=== PATIENT | male | born 1965 | race Caucasian/White ===

== ENCOUNTER 2018-05-29 08:18 | Inpatient (IN) ==
[2018-05-29 08:38] LABS: URINE SOURCE CLEAN CATCH
[2018-05-29 08:46] LABS: BILIRUBIN URINE NEGATIVE (NEGATIVE); BLOOD URINE NEGATIVE (NEGATIVE); COLOR ORANGE; GLUCOSE URINE NEGATIVE (NEGATIVE); KETONE URINE NEGATIVE (NEGATIVE); LEUKOCYTES URINE NEGATIVE (NEGATIVE); NITRITE URINE NEGATIVE (NEGATIVE); PROTEIN URINE TRACE mg/dL (NEGATIVE); SP GRAVITY URINE 1.017; TURBIDITY URINE HAZY (CLEAR); UROBILINOGEN URINE 2 mg/dL (NORMAL)
[2018-05-29 08:47] LABS: UR EPITHELIAL CELLS <10 /HPF (<10); URINE BACTERIA NEGATIVE /HPF; URINE RBC <10 /HPF (<10); URINE WBC <10 /HPF (<10)
[2018-05-29] MEDS ORDERED: ZOFRAN IV ONE (08:52)
[2018-05-29] MEDS ORDERED: DILAUDID IV ONE (08:52)
--- NOTE | 2018-05-29 09:02 | PROVIDER DOCUMENTATION ---
HPI-Abdominal Pain/GI Problem - General Chief Complaint: Abdominal Pain Stated Complaint: LOWER ABD PAIN Time Seen by Provider: 05/29/18 08:40 Source: patient, old records Allergies/Adverse Reactions: Patient Allergies Allergy/AdvReac Type Severity Reaction Status Date / Time No Known Allergies Allergy Verified 11/02/12 10:44 Home Medications: Home Medication List Medication Instructions Recorded Confirmed Last Taken Type Atenolol [Tenormin] 50 mg PO DAILY 11/02/12 11/02/12 11/01/12 05:00 History 50 MG Losartan [Cozaar] 50 mg PO DAILY 11/02/12 11/02/12 11/01/12 05:00 History 50 MG SIMVAstatin [Zocor] 40 mg PO QHS 11/02/12 11/02/12 10/26/12 18:00 History 40 MG - History of Present Illness-ABD Nature of Presenting Problems: pt reports 4 non-bloody diarrheal stools yesterday, then last noc abd pain initially LLQ, now more generalized. no doc'd fever, no emesis ("I can't vomit"...hx of fundoplication). Pt also reporting "dark" (? bloody) urine this a.m, denies PMHx of renal stones. does report 1 remote episode of diverticulitis. 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 Pain Radiation: reports: no radiation Review of Systems - Adult - REVIEW OF SYSTEMS - ADULT Constitutional: reports: no symptoms reported Eyes: reports: no symptoms reported Ears, Nose, Mouth & Throat: reports: no symptoms reported Cardiovascular: reports: no symptoms reported Respiratory: reports: no symptoms reported. denies: shortness of breath Gastrointestinal: reports: see HPI Genitourinary: reports: see HPI Musculoskeletal: reports: no symptoms reported Integumentary: reports: no symptoms reported Neurological: reports: no symptoms reported Psychiatric: reports: no symptoms reported Endocrine: reports: no symptoms reported Hematologic/Lymphatic: reports: no symptoms reported Allergic/Immunologic: reports: no symptoms reported All Other Systems: Reviewed and Negative Past History - Adult - PAST MEDICAL HISTORY-ADULT Review of Records: reports: Old Records Reviewed Physical Exam-General - PHYSICAL EXAM-ADULT Initial Vital Signs Reviewed: Yes - CONSTITUTIONAL General Appearance: appears well, alert, mild distress - EYES Eyes: PERRL/EOMI, pink conjunctivae. negative: sclera injected - HEAD, EARS, NOSE, MOUTH & THROAT HENMT: normocephalic/atraumatic, moist mucous membranes, normal ENT inspection - NECK Neck: supple. negative: Brudzinski's sign - RESPIRATORY Respiratory: lungs clear, normal breath sounds - CARDIOVASCULAR Cardiovascular: normal peripheral pulses, regular rate, rhythm - GASTROINTESTINAL (ABDOMEN) Abdominal Exam: normal bowel sounds, soft, tenderness (LLQ, suprapubic). negative: abdominal bruit, distended, guarding, rigid, rebound - LYMPHATIC Lymphatic: no adenopathy - MUSCULOSKELETAL Back Exam: normal inspection, no CVA tenderness Extremity: normal range of motion, normal gait Peripheral Pulses: radial (R): 2+, radial (L): 2+ - SKIN Integumentary: normal color, normal turgor, warm/dry. negative: ecchymosis, embolic lesions, purpura, rash - NEUROLOGIC Neurologic: citrus picker II-XII nml as tested, grossly normal - PSYCHIATRIC Psych/Mental Status: normal mood/affect, normal thought content Progress - PLAN OF CARE/RESULTS Progress/Plan/Lab Results: Vital Signs - 8 hr 05/29/18 08:27 Temperature 98.7 F Pulse Rate 84 Respiratory Rate 18 Blood Pressure 130/86 O2 Sat by Pulse Oximetry 100 Laboratory Results - last 24 hr 05/29/18 08:31 Urine Source CLEAN CATCH Urine Color ORANGE Urine Turbidity HAZY Urine pH 6.0 Ur Specific Paragon 1.017 Urine Protein TRACE A Ur Glucose (Stick) NEGATIVE Ur Ketones (Stick) NEGATIVE Urine Blood NEGATIVE Urine Nitrite NEGATIVE Urine Bilirubin NEGATIVE Urobilinogen Dipstick 2 A Urine Leukocytes NEGATIVE Urine WBC (Auto) <10 Urine RBC (Auto) <10 U Epithel Cells (Auto) <10 Urine Bacteria (Auto) NEGATIVE Orders Category Date Time Status ED: Urine Bedside ORDERED Care 05/29/18 08:47 Ordered NPO Diet 05/29/18 08:[address] ABDOMEN/PELVIS W/O CONTRAST [CT] Stat Exams 05/29/18 08:53 Ordered AMYLASE [CHEM] Stat Lab 05/29/18 08:48 Uncollected CBC WITH DIFF [HEME] Stat Lab 05/29/18 08:47 Uncollected COMPREHENSIVE METABOLIC PANEL [CHEM] Stat Lab 05/29/18 08:47 Uncollected LIPASE [CHEM] Stat Lab 05/29/18 08:47 Uncollected UA [URINALYSIS W/POSS RFLX CULT] [URINALYSIS] Stat Lab 05/29/18 08:31 Results URINE DRUG SCREEN Stat Lab 05/29/18 08:48 Uncollected Hydromorphone [Dilaudid] Med 05/29/18 08:52 Once 1 mg IV NOW ONE Ondansetron [Zofran] Med 05/29/18 08:52 Once 4 mg IV NOW ONE Abd Pain/OB <20 weeks Stat Oth 05/29/18 08:41 Ordered Result Diagrams: 05/29/18 09:00 05/29/18 09:00 - REASSESSMENT Reassessment #1 Time Reassessed: 12:10 Status: unchanged (CT shows diverticulitis w/ extra-luminal gas, abscess: pt agrees to admit) - CONSULTS/PCP/HOSPITALIST Notification #1 *Consult/PCP/Hospitalist*: [place] Time Discussed: 12:05 Consult Disposition: Admit Departure - Departure Date of Disposition Decision: 05/29/18 Time of Disposition Decision: 12:10 DIAGNOSIS: Acute diverticulitis Disposition: ADMITTED INPATIENT 09 Certified Medical Emergency: Emergent Condition: Serious Referrals and Follow-Ups: None,PCP [NON-STAFF PROVIDER] - - Critical Care Note This patient required my direct & personal management of CC.: No Attestation - Physician/ ZAK Attestation The physician spent face to face time with patient:: Yes Advanced Practice Provider documentation review:: Supervising physician onsite and consulted in the evaluation and care of this patient. The physician did have a face to face encounter with the patient.
[2018-05-29 09:18] LABS: BASO# 0.01 X1000 (0.0-0.2); BASO% 0.1 % (0.0-0.8); EOS# 0.01 X1000 (0.0-0.7); EOS% 0.1 % (0.0-10.0); HEMATOCRIT 35.9 % (42.0-52.0); IMM GRAN# 0.02 X1000 (0.0-0.04); IMM GRAN% 0.2 % (0.0-0.5); LYMPH# 0.56 X1000 (1.2-3.4); LYMPH% 4.9 % (20.5-51.1); MCH 32.7 PG (27-31); MCHC 33.4 g/dL (33-37); MCV 97.8 FL (81-99); MONO# 0.41 X1000 (0.11-0.59); MONO% 3.6 % (1.7-9.3); MPV 9.4 FL (7.4-10.4); NEUT# 10.34 X1000 (1.4-6.5); NEUT% 91.1 % (42.2-75.2); PLT 128 X1000 (130-400); RBC 3.67 XMIL (4.7-6.1); RDW 14.4 % (11.5-14.5); WBC 11.35 X1000 (4.8-10.8)
[2018-05-29 09:21] LABS: UR AMPHETAMINES QUAL NONE DETECTED (NONE DETECT); UR BARBITUATES QUAL NONE DETECTED (NONE DETECT); UR BENZODIAZEPIN QUAL NONE DETECTED (NONE DETECT); UR CANNABINOIDS QUAL NONE DETECTED (NONE DETECT); UR COCAINE QUAL NONE DETECTED (NONE DETECT); UR METHADONE QUAL NONE DETECTED (NONE DETECT); UR OPIATES QUAL NONE DETECTED (NONE DETECT); UR OXYCODONE QUAL NONE DETECTED (NONE DETECT); UR PCP QUAL NONE DETECTED (NONE DETECT)
[2018-05-29 09:41] LABS: AGAP 15; ALB/GLOB RATIO 1.3; ALKALINE PHOSPHATASE 37 U/L (32-122); AMYLASE 40 U/L (20-200); BUN 8 mg/dL (8-22); CALCIUM 8.3 mg/dL (8.8-10.2); CHLORIDE 97 mmol/L (98-107); COSMO 275; ESTIMATED GFR > 60; GLUCOSE 119 mg/dL (70-104); GOT 117 U/L (10-34); GPT 45 U/L (10-44); LIPASE 24 U/L (13-60); POTASSIUM 3.3 mmol/L (3.5-5.1); SODIUM 138 mmol/L (136-145); TCO2 26 mmol/L (25-35); TOTAL PROTEIN 7.1 g/dL (6.3-8.3)
[2018-05-29 09:53] LABS: BANDS 3 % (0-1); LYMPHS 4 % (21-51); MONO 3 % (1-9); SEGS 90 % (42-75)
--- NOTE | 2018-05-29 10:02 | Diag Imaging Result Doc PS360 ---
EXAM: CT ABDOMEN/PELVIS W/O CONTRAST 05/29/2018 HISTORY: LLQ abd pain; ?? hematuria; PMHx diverticulitis TECHNIQUE: This exam was performed using automated exposure control, adjustment of mA or kV according to patient size, and/or use of iterative reconstruction technique. COMMENT: The current examination is compared with the previous study of 11/02/2012. There is no evidence of hydronephrosis or stones. The appendix is not distended. There is some fluid in the right paracolic gutter, and there is fluid in the ascending colon. There is diverticulosis and apparent diverticulitis in the sigmoid colon. There is some extraluminal gas seen anterior to the sigmoid. There may be a small abscess around image 113 anterolaterally on the left. This was not the case at the time the previous study. There is fluid and/or edema anterior to the urinary bladder. This is presumably related to the inflammatory change in the properitoneal fat. There are spondylotic changes in the lumbar spine. The small bowel is not distended. IMPRESSION: Sigmoid diverticulitis. Extraluminal gas and apparent early abscess formation. Properitoneal and mesenteric fat inflammation. Electronically signed by Reno Guerrero 05/29/2018 9:59 AM
[2018-05-29] MEDS ORDERED: LEVAQUIN 500 MG/D5W 500 MG/100 ML IVPB IV ONE (11:45)
[2018-05-29] MEDS ORDERED: FLAGYL 500 MG/NS 500 MG/100 ML IVPB IV ONE (11:45)
[2018-05-29] MEDS ORDERED: NS 1,000 ML IV SCH (13:17)
[2018-05-29] MEDS ORDERED: TYLENOL PO PRN (13:17)
[2018-05-29] MEDS: FLAGYL 500 MG/NS 500 MG/100 ML IVPB IV SCH ×2 (13:51→20:29)
[2018-05-29] MEDS: MORPHINE IV PRN ×3 (13:51→21:55)
[2018-05-29] MEDS ORDERED: PNEUMOVAX 23 IM ONE (15:15)
[2018-05-29] MEDS: LEVAQUIN 750 MG/D5W 750 MG/150 ML IVPB IV SCH (16:06)
--- NOTE | 2018-05-29 16:50 | GENERAL SURGERY CONSULTATION ---
DATE: 05/29/2018 REQUESTING PHYSICIAN: Hospitalist Service. REASON FOR CONSULTATION: Consult is concerning diverticulitis. HISTORY OF PRESENT ILLNESS: A 52-year-old male with a history of less than 24-hours of pain that started in the left lower quadrant, now more generalized. He has also had some issues with change in his urine. He describes it as being somewhat bloody. He came to emergency department for this and was found to have diverticulitis. He has had a previous episode remotely, and he has had a recent colonoscopy in 2012 which was found to have bleeding polyps. This was done by Dr. Mondragon. He still reports some pain in the left lower quadrant that has not improved much since he was admitted. PAST MEDICAL HISTORY: History of Noonan's esophagus, hyperlipidemia, hypertension. PAST SURGICAL HISTORY: Includes Davian fundoplication, unspecified abdominal mass removal and nasal surgery. SOCIAL HISTORY: Nonsmoker. Occasional alcohol. FAMILY HISTORY: Reviewed with patient, noncontributory. REVIEW OF SYSTEMS: A full 10 point review of systems obtained and negative, except as specified in HPI. MEDICATIONS: Current MAR reviewed. He is on Levaquin and Flagyl. ALLERGIES: None. PHYSICAL EXAMINATION: Vital Signs: Patient is currently afebrile. His vital signs are stable. General exam: No acute distress. Alert, interactive male looks stated age. HEENT: Normocephalic, atraumatic. Pupils equal, round, reactive to light. Mucous membranes moist. Oropharynx benign. Neck: Supple. Trachea midline. Cardiovascular: Regular rate and rhythm. Lungs: Grossly clear. Abdomen: Soft. Tender to palpation suprapubically in left lower quadrant and some in the right lower quadrant. Some mild guarding, but no generalized peritoneal signs. Extremities: Moves all extremities. Neurologic: Grossly intact. Skin: No signs of jaundice. Vascular: All extremities perfused. LABORATORY: White blood cell count 11, hematocrit 35, platelet count 128. There is a left shift to 91%. Remainder of labs reviewed. X-RAYS: CT scan independently reviewed and radiology report reviewed. He does have diverticulitis. There may be a development of an abscess. ASSESSMENT AND PLAN: A 52 year old with recurrent diverticulitis. 1. Diverticulitis. At this time recommend keeping him on nothing by mouth and giving him intravenous antibiotics. May need to consider repeat CT scan in the next 48 hours to see if an abscess has formed. This area is near his bladder on CT scan; it may be contributing to somewhat of his issues with his urination. At this point, I would like to try to treat him nonoperatively and plan on colonoscopy in 6 weeks, which I can do for the patient in an outpatient setting. He may also need to consider elective surgery for this resection given the fact that this is his second episode. Otherwise, continue current treatment. If any clinical signs change that he is deteriorating, we will consider surgical resection of this area with ostomy. cc: Chapincito Dewey MD
[2018-05-29] MEDS: ZOCOR PO SCH (20:29)
[2018-05-29] MEDS ORDERED: MORPHINE IV ONE (23:49)
[2018-05-30] MEDS: NS + KCL 40 MEQ 1,000 ML IV SCH ×3 (00:15→16:30)
[2018-05-30] MEDS: PROTONIX IV SCH ×2 (00:15→22:34)
--- NOTE | 2018-05-30 01:38 | HISTORY AND PHYSICAL ---
CHIEF COMPLAINT: Abdominal pain. HPI: This is a 52-year-old male with history of diabetes, and hypertension and dyslipidemia, previous diverticulitis with abdominal pain starting the day before admission. Pain in left lower quadrant location with severe pain, 10/10, sharp in nature, nonradiating, worsens with movement. Did improve with pain control. She had constant pain. The patient has had 1 episode previously of diverticulitis, although he was not admitted. The patient came in for evaluation, was found to have sigmoid diverticulitis and was admitted for treatment. There was question of her early abscess. The patient denies nausea or vomiting. No hematochezia, no melena. PAST MEDICAL HISTORY: 1. GERD. 2. Noonan's esophagus. 3. Type 2 diabetes noninsulin dependent. 4. Hypertension. 5. Dyslipidemia. 6. Colonic polyps. PAST SURGICAL HISTORY: 1. He has had a fundoplication for Noonan's. 2. Hemorrhoid surgery. 3. Sinus surgery. 4. He has had a fatty tumor removed from his ribs. SOCIAL HISTORY: No tobacco or ethanol. ALLERGIES: No known drug allergies. MEDICATIONS: He takes Zocor 40 daily, losartan 50 daily, Glucophage 500 b.i.d., Klor-Con 10 daily, and atenolol 50 daily. FAMILY HISTORY: He has had multiple CAD history, father, brother, sister and mother. Brother had issues at 42. Sister had CAD at 44. Mother with CAD and at 52. Brother with CAD at 50. Sister has a history of [employer] cancer. REVIEW OF SYSTEMS: Constitutional: No weight loss. No weight change Cardiovascular: No chest pain or palpitations. Pulmonary: No shortness of breath or cough. GI: As described. Some diarrhea. Urinary: No dysuria or urinary retention. Otherwise, negative x10 point review of systems. PHYSICAL EXAMINATION: VITAL SIGNS: Blood pressure is 110/80, heart rate 85, respiratory rate 19, temperature 99.9 degrees. GENERAL: A well-developed male, in no acute distress. HEENT: Eye exam: Pupils equal, round, reactive to light. Extraocular movements were intact. Sclerae are anicteric. Oropharynx moist, clear. NECK: Supple. CARDIOVASCULAR: Regular rate and rhythm. No murmurs, gallops, or rubs. PULMONARY: Bilateral breath sounds. Clear to auscultation. GI: Soft. Pain in his lower quadrant, mid quadrant, left lower quadrant. No rebound. No guarding. Bowel sounds positive. EXTREMITIES: No clubbing or cyanosis. NEUROLOGICAL: Nonfocal. MUSCULOSKELETAL: 4-5 all 4 extremities. SKIN: Clean, dry, and intact. LABORATORY DATA: White count 11, hemoglobin and hematocrit 12 and 35, platelets 128,000. Potassium 3.3. AST and ALT are 117 and 45, T bilirubin 1.8. Urine was negative. UDS was negative. A CT scan showed sigmoid diverticulitis with early abscess formation but no other major pathology. However, it was a noncontrast CT. ASSESSMENT: This is a 52-year-old male presenting with pain, nausea, vomiting, and acute diverticulitis of the sigmoid which is recurrent. PLAN: 1. Acute recurrent sigmoid diverticulitis with early abscess formation. We will continue empiric antibiotics, Cipro, Flagyl. N.p.o. for now. Surgery consult and we will do serial abdominal exams , and follow clinically. 2. Type 2 diabetes. Check A1c, sliding scale insulin, and monitor blood sugars closely. 3. Hypertension. Continue regular medications and monitor. DISPOSITION: Pending clinical status. We will continue closely. cc: MD David Goldberg MD MTDD
[2018-05-30] MEDS: FLAGYL 500 MG/NS 500 MG/100 ML IVPB IV SCH ×4 (02:18→19:44)
--- NOTE | 2018-05-30 04:50 | GENERAL SURGERY PROGRESS NOTE ---
DATE: 05/30/2018 SUBJECTIVE: Patient is still having some pain in bilateral lower quadrants. OBJECTIVE: Vital signs: Patient is currently afebrile, but he had a temperature max of 99.9. His vital signs have been stable. General: No acute distress. Resting comfortably but appears uncomfortable male. HEENT: Normocephalic, atraumatic. Pupils equal, round, reactive to light. Mucous membranes moist. Oropharynx benign. Neck: Supple. Trachea midline. Cardiovascular: Regular rate and rhythm. Lungs: Grossly clear. Abdomen: Soft, tender to palpation in bilateral lower quadrants with some mild guarding. Extremities: Moves all extremities. Neurologic: Grossly intact. Skin: No signs of jaundice. Vascular: All extremities perfused. LABORATORY: None this morning. ASSESSMENT AND PLAN: A 52-year-old with diverticulitis. Diverticulitis. At this time, we will keep him NPO. Keep him on IV antibiotics. Hopefully, he will start to turn the corner in the next 12 to 24 hours. May need to consider repeat CT scan in the next 24 to 48 hours. We will continue nonoperative management for right now. cc: Chapincito Dewey MD
[2018-05-30] MEDS: MORPHINE IV PRN ×5 (05:14→19:37)
[2018-05-30] MEDS ORDERED: LOVENOX SUBQ SCH (06:00)
[2018-05-30 06:39] LABS: BASO# 0.01 X1000 (0.0-0.2); BASO% 0.1 % (0.0-0.8); EOS# 0.02 X1000 (0.0-0.7); EOS% 0.2 % (0.0-10.0); HEMATOCRIT 32.7 % (42.0-52.0); HEMOGLOBIN 10.5 g/dL (14.0-18.0); LYMPH# 0.39 X1000 (1.2-3.4); LYMPH% 4.5 % (20.5-51.1); MCH 32.2 PG (27-31); MCHC 32.1 g/dL (33-37); MCV 100.3 FL (81-99); MONO# 0.43 X1000 (0.11-0.59); MONO% 4.9 % (1.7-9.3); MPV 9.4 FL (7.4-10.4); NEUT% 90.3 % (42.2-75.2); PLT 97 X1000 (130-400); RBC 3.26 XMIL (4.7-6.1); RDW 14.4 % (11.5-14.5); WBC 8.75 X1000 (4.8-10.8)
[2018-05-30 06:45] LABS: HEMOGLOBIN A1C 4.9 % (4.8-6.0)
[2018-05-30] MEDS: HUMULIN R SUBQ SCH ×4 (07:00→20:07)
[2018-05-30 07:07] LABS: AGAP 12; ALB/GLOB RATIO 1.1; ALBUMIN 3.2 g/dL (3.5-5.0); ALKALINE PHOSPHATASE 34 U/L (32-122); BUN 8 mg/dL (8-22); CALCIUM 7.7 mg/dL (8.8-10.2); CHLORIDE 99 mmol/L (98-107); COSMO 272; CREATININE 1.1 mg/dL (0.7-1.2); ESTIMATED GFR > 60; GLUCOSE 103 mg/dL (70-104); GOT 31 U/L (10-34); GPT 20 U/L (10-44); MAGNESIUM 1.1 mg/dL (1.5-2.7); SODIUM 137 mmol/L (136-145); TCO2 26 mmol/L (25-35); TOTAL BILIRUBIN 1.12 mg/dL (0.20-1.00); TOTAL PROTEIN 6.1 g/dL (6.3-8.3)
[2018-05-30] MEDS: TENORMIN PO SCH (08:19)
[2018-05-30] MEDS: COZAAR PO SCH (08:19)
[2018-05-30] MEDS: LEVAQUIN 750 MG/D5W 750 MG/150 ML IVPB IV SCH (16:41)
[2018-05-30] MEDS: ZOFRAN IV PRN (19:37)
[2018-05-30] MEDS: ZOCOR PO SCH (20:00)
[2018-05-30] MEDS ORDERED: MAGNESIUM SULFATE 2 GM/S.W.I. 2 GM/50 ML IVPB IV ONE (21:51)
--- NOTE | 2018-05-30 22:24 | PROGRESS NOTE ---
DATE: 05/30/2018 SUBJECTIVE: Patient has no major complaints except persistent pain. OBJECTIVE: Vital Signs: Blood pressure is 111/67, heart rate 86, respiratory rate 18, 02 of 92. Cardiovascular: Regular rate and rhythm. Pulmonary: Bilateral breath sounds. Clear to auscultation. GI: Soft, nontender, nondistended. Bowel sounds are positive. LABORATORY DATA: White count 8, hemoglobin and hematocrit 10 and 32, platelets 97. CMP looked okay. PROBLEM LIST: 1. Diverticulitis with developing abscess. We will continue antibiotics. He is on Levaquin and Flagyl. We will continue to follow closely. 2. Type 2 diabetes. We will check A1c. Continue sliding scale and follow closely. 3. Hypertension. Continue his regular medications. 4. Thrombocytopenia. We will hold enoxaparin and follow. If he has any further decrease, he will need Hematology-Oncology. 5. Macrocytic anemia. We will pursue anemia workup and follow. 6. Continue to follow closely. Also evaluate for alcohol use, although he does not report any significant alcohol use, but he does have mildly elevated liver enzymes. We will pursue right upper quadrant, hepatitis panel in the morning and follow. DISPOSITION: He will probably need a repeat CT in another day too, and we will continue to follow. cc: Donald Castillo MD
[2018-05-30] MEDS: SODIUM CHLORIDE 0.9% INJ SCH (22:34)
[2018-05-30] MEDS: DILAUDID IV PRN (22:41)
[2018-05-30] MEDS: NS 1,000 ML IV SCH (22:42)
[2018-05-31] MEDS: FLAGYL 500 MG/NS 500 MG/100 ML IVPB IV SCH ×4 (01:41→19:37)
[2018-05-31] MEDS: DILAUDID IV PRN ×7 (01:41→22:36)
[2018-05-31 05:59] LABS: RETIC% 1.45 % (0.8-2.1); RETIC-HE 30.6 PG (28.2-36.6)
--- NOTE | 2018-05-31 06:00 | GENERAL SURGERY PROGRESS NOTE ---
DATE: 05/31/2018 SUBJECTIVE: Patient seems to be doing better. His pain is better controlled. OBJECTIVE: Vital Signs: Patient is currently afebrile. His vital signs stable. General: No acute distress. HEENT: Normocephalic, atraumatic. Pupils equal, round, reactive to light. Mucous membranes moist. Oropharynx benign. Neck: Supple. Trachea midline. Cardiovascular: Regular rate and rhythm. Lungs: Grossly clear. Abdomen: Soft, less tender to palpation compared to previous days. Extremities: Moves all extremities. Neurologic: Grossly intact. Skin: No signs of jaundice. Vascular: All extremities perfused. LABORATORY: Reviewed from yesterday. Of note, his white blood cell count is normal. ASSESSMENT AND PLAN: A 52-year-old gentleman with diverticulitis. 1. Diverticulitis. At this time, the patient is clinically doing better. We will start him on clear liquid diet. Given the fact he has not had a fever, his white blood cell count is trending down to normal and he is overall feeling better, I think we can hold off on repeat CT scan for right now. We will monitor him closely. If he is doing okay, may be advance him to a regular diet tomorrow. Consider discharge. 2. Elevated liver function tests. At this time, an ultrasound is pending, we will follow up with the results. cc: Chapincito Dewey MD
[2018-05-31 06:06] LABS: BASO# 0.01 X1000 (0.0-0.2); BASO% 0.1 % (0.0-0.8); EOS# 0.03 X1000 (0.0-0.7); EOS% 0.4 % (0.0-10.0); HEMATOCRIT 32.1 % (42.0-52.0); HEMOGLOBIN 10.3 g/dL (14.0-18.0); IMM GRAN# 0.02 X1000 (0.0-0.04); IMM GRAN% 0.2 % (0.0-0.5); LYMPH# 0.54 X1000 (1.2-3.4); LYMPH% 6.5 % (20.5-51.1); MCH 32.2 PG (27-31); MCHC 32.1 g/dL (33-37); MCV 100.3 FL (81-99); MONO# 0.49 X1000 (0.11-0.59); MONO% 5.9 % (1.7-9.3); MPV 9.4 FL (7.4-10.4); NEUT# 7.28 X1000 (1.4-6.5); NEUT% 86.9 % (42.2-75.2); PLT 128 X1000 (130-400); RDW 14.3 % (11.5-14.5); WBC 8.37 X1000 (4.8-10.8)
[2018-05-31 06:21] LABS: AGAP 12; ALB/GLOB RATIO 0.8; ALBUMIN 3.1 g/dL (3.5-5.0); ALKALINE PHOSPHATASE 28 U/L (32-122); BUN 10 mg/dL (8-22); CALCIUM 8.1 mg/dL (8.8-10.2); CHLORIDE 101 mmol/L (98-107); COSMO 273; CREATININE 1.2 mg/dL (0.7-1.2); ESTIMATED GFR > 60; GLUCOSE 96 mg/dL (70-104); GOT 17 U/L (10-34); GPT 13 U/L (10-44); IRON SATURATION 6 %; MAGNESIUM 1.7 mg/dL (1.5-2.7); POTASSIUM 3.7 mmol/L (3.5-5.1); SODIUM 137 mmol/L (136-145); TCO2 24 mmol/L (25-35); TIBC 236 ug/dL; TOTAL BILIRUBIN 0.89 mg/dL (0.20-1.00); TOTAL IRON 15 ug/dL (53-167); TOTAL PROTEIN 6.8 g/dL (6.3-8.3); UNBOUND IRON 221 ug/dL (112-346)
[2018-05-31 06:36] LABS: FERRITIN 403 ng/mL (30-400)
[2018-05-31] MEDS: HUMULIN R SUBQ SCH ×4 (06:40→22:45)
--- NOTE | 2018-05-31 07:55 | Diag Imaging Result Doc PS360 ---
US GB < RUQ (LIMITED) - 05/31/2018 INDICATION: elevated liver enzymes TECHNIQUE: COMPARISON: 05/29/2018 FINDINGS: The pancreas is mostly obscured by bowel gas. There is trace ascites around the liver. The liver, gallbladder, and right kidney are normal. Common bile duct measures 5 mm. Aorta, IVC, and main portal vein are patent. IMPRESSION: Trace perihepatic fluid. Otherwise negative. Electronically signed by Ward Nazario 05/31/2018 7:53 AM
[2018-05-31] MEDS: TENORMIN PO SCH (08:25)
[2018-05-31] MEDS: COZAAR PO SCH (08:25)
[2018-05-31] MEDS: ARIXTRA SUBQ SCH (08:26)
[2018-05-31] MEDS: LEVAQUIN 750 MG/D5W 750 MG/150 ML IVPB IV SCH (15:04)
--- NOTE | 2018-05-31 16:03 | PROGRESS NOTE ---
DATE: 05/31/2018 SUBJECTIVE: Patient resting in bed. OBJECTIVE: Vital signs: Temperature 98.8 degrees, respiratory rate 16, blood pressure 121/83, oxygen saturation is 100%. HEENT: Atraumatic, normocephalic. Cardiovascular system: S1, S2. Respiratory system: Has evidence of good air entry bilaterally. Abdomen: Soft, nontender. No masses felt. Extremities: No evidence of edema. Central nervous system: No obvious focal deficit noted. LABORATORY DATA: WBC 8.37, hematocrit is 32.1 with a platelet count of 128,000. Sodium is 137, potassium 3.7, chloride is 101, bicarbonate 24, BUN is 10, Serum iron is 15. Folate level is 5.5. ASSESSMENT AND PLAN: 1. Diverticulitis with developing abscess. Continue antibiotics. Surgery following. 2. Diabetes mellitus. Continue blood sugar monitoring as well as sliding scale insulin. 3. Hypertension. Continue current antihypertensive regimen. 4. Thrombocytopenia. Slightly improved compared to yesterday's numbers. Continue to follow up on platelet count. We will check for anti-platelet antibodies. 5. Anemia. The patient noted to have low folate and iron levels. These will be replaced. Will need GI evaluation for lower GI endoscopy at some point perhaps in next 6 weeks 6. Deep vein thrombosis (DVT) prophylaxis. SCD. 7. Gastrointestinal (GI) prophylaxis. PPI. cc: Zach Demarco MD MTDD
[2018-05-31] MEDS: NS 1,000 ML IV SCH ×2 (16:57→18:58)
[2018-05-31] MEDS: ZOCOR PO SCH (22:16)
[2018-05-31] MEDS: SODIUM CHLORIDE 0.9% INJ SCH (22:17)
[2018-05-31] MEDS: PROTONIX IV SCH (22:17)
[2018-06-01] MEDS: DILAUDID IV PRN (01:41)
[2018-06-01] MEDS: FLAGYL 500 MG/NS 500 MG/100 ML IVPB IV SCH ×4 (01:43→22:09)
[2018-06-01] MEDS: PROTONIX IV SCH ×2 (02:13→23:39)
[2018-06-01] MEDS: NS 1,000 ML IV SCH (04:58)
[2018-06-01] MEDS: ZOFRAN IV PRN (05:02)
--- NOTE | 2018-06-01 06:42 | GENERAL SURGERY PROGRESS NOTE ---
DATE: 06/01/2018 SUBJECTIVE: Patient says he is feeling better. He had a bowel movement. OBJECTIVE: Vital Signs: Patient is currently afebrile. His vital signs are stable. General: No acute distress. HEENT: Normocephalic, atraumatic. Pupils equal, round, reactive to light. Mucous membranes moist oropharynx. Oropharynx benign. Neck: Supple, trachea midline. Cardiovascular: Regular rate and rhythm. Lungs: Grossly clear. Abdomen: Soft. Less tender compared to previous days. He is only essentially tender in the left lower quadrant. Extremities: Moves all extremities. Neurologic: Grossly intact. Skin: No signs of jaundice. Vascular: All extremities perfused. LABORATORY: None this morning as of yet. ASSESSMENT/PLAN: A 52-year-old with diverticulitis. 1. Diverticulitis. At this time, we will advance him to a GI soft diet. He has seemed to do well overall and is making some improvement. I think we can look at a discharge in the near future. 2. Elevated liver function tests. At this time, he did have essentially normal right upper quadrant ultrasound. We will just monitor for now. cc: Chapincito Dewey MD
[2018-06-01] MEDS: HUMULIN R SUBQ SCH ×4 (06:51→23:39)
[2018-06-01 08:46] LABS: BASO# 0.01 X1000 (0.0-0.2); BASO% 0.2 % (0.0-0.8); EOS# 0.04 X1000 (0.0-0.7); EOS% 0.7 % (0.0-10.0); HEMATOCRIT 29.6 % (42.0-52.0); HEMOGLOBIN 9.6 g/dL (14.0-18.0); IMM GRAN# 0.02 X1000 (0.0-0.04); IMM GRAN% 0.3 % (0.0-0.5); LYMPH# 0.42 X1000 (1.2-3.4); LYMPH% 7.2 % (20.5-51.1); MCH 32.2 PG (27-31); MCHC 32.4 g/dL (33-37); MCV 99.3 FL (81-99); MONO% 8.6 % (1.7-9.3); MPV 9.3 FL (7.4-10.4); NEUT# 4.82 X1000 (1.4-6.5); PLT 143 X1000 (130-400); RBC 2.98 XMIL (4.7-6.1); RDW 14.1 % (11.5-14.5); WBC 5.81 X1000 (4.8-10.8)
[2018-06-01] MEDS: TENORMIN PO SCH (08:57)
[2018-06-01] MEDS: ICAR-C PO SCH (08:57)
[2018-06-01] MEDS: FOLIC ACID PO SCH (08:57)
[2018-06-01] MEDS: ARIXTRA SUBQ SCH (08:57)
[2018-06-01] MEDS: COZAAR PO SCH (08:57)
[2018-06-01 09:05] LABS: AGAP 14; ALB/GLOB RATIO 0.8; ALBUMIN 2.9 g/dL (3.5-5.0); ALKALINE PHOSPHATASE 28 U/L (32-122); BUN 8 mg/dL (8-22); CALCIUM 7.8 mg/dL (8.8-10.2); CHLORIDE 102 mmol/L (98-107); COSMO 274; CREATININE 1.1 mg/dL (0.7-1.2); ESTIMATED GFR > 60; GLUCOSE 94 mg/dL (70-104); GOT 16 U/L (10-34); GPT 9 U/L (10-44); POTASSIUM 3.7 mmol/L (3.5-5.1); SODIUM 138 mmol/L (136-145); TCO2 22 mmol/L (25-35); TOTAL BILIRUBIN 0.56 mg/dL (0.20-1.00); TOTAL PROTEIN 6.4 g/dL (6.3-8.3)
[2018-06-01] MEDS ORDERED: NORCO-7.5 PO PRN (11:19)
[2018-06-01 12:47] LABS: HEPATITIS PROFILE ACUTE SEE COMMENTS
[2018-06-01] MEDS: FLONASE NAS SCH (13:55)
[2018-06-01] MEDS: LEVAQUIN 750 MG/D5W 750 MG/150 ML IVPB IV SCH (15:00)
--- NOTE | 2018-06-01 16:09 | PROGRESS NOTE ---
DATE: 06/01/2018 SUBJECTIVE: The patient is sitting up at the edge of the bed. He states that he was able to eat his solid diet without any difficulty. He does have some mild abdominal pain. OBJECTIVE: Vital Signs: Temperature 98.4 degrees, blood pressure 127/84, heart rate 76, respirations 18, O2 saturations 100% on room air. General: This is an elderly male sitting at the edge of the bed in no acute distress. Heart: S1, S2 normal. Regular rate and rhythm. Lungs: Equal air entry bilaterally. No wheezing, no rales, no rhonchi. Abdomen: Positive bowel sounds. Soft, nontender, nondistended. Extremities: No edema, no cyanosis. Neuro: The patient is alert and oriented x3. LABS: Reviewed. ASSESSMENT AND PLAN: 1. Sigmoid diverticulitis with early abscess formation. The patient appears to be responding well to antibiotic therapy. He is able to tolerate a diet. Will continue with the current treatment regimen as directed by the general surgeon. 2. Diabetes mellitus type 2. Continue on sliding scale insulin. 3. Anemia. Aware. Will continue to monitor closely. 4. Folate deficiency. Continue on folic acid. 5. Hypertension. Continue on the current antihypertensive regimen. 6. Thrombocytopenia. Resolved. 7. Deep vein thrombosis prophylaxis. Continue on Arixtra. cc: Olivia Perry MD MTDD
[2018-06-01] MEDS: SINGULAIR PO SCH (17:01)
[2018-06-01] MEDS: ZOCOR PO SCH (22:07)
[2018-06-01] MEDS: SODIUM CHLORIDE 0.9% INJ SCH (23:39)
[2018-06-02] MEDS: FLAGYL 500 MG/NS 500 MG/100 ML IVPB IV SCH ×2 (04:12→08:18)
[2018-06-02 06:45] LABS: HEMATOCRIT 31.9 % (42.0-52.0); HEMOGLOBIN 10.4 g/dL (14.0-18.0); MCH 32.5 PG (27-31); MCHC 32.6 g/dL (33-37); MCV 99.7 FL (81-99); MPV 9.8 FL (7.4-10.4); RBC 3.2 XMIL (4.7-6.1); RDW 14.4 % (11.5-14.5)
[2018-06-02 07:08] LABS: AGAP 17; ALB/GLOB RATIO 0.9; ALBUMIN 3.3 g/dL (3.5-5.0); ALKALINE PHOSPHATASE 39 U/L (32-122); BUN 9 mg/dL (8-22); CALCIUM 8.9 mg/dL (8.8-10.2); CHLORIDE 99 mmol/L (98-107); COSMO 274; CREATININE 1.2 mg/dL (0.7-1.2); ESTIMATED GFR > 60; GLUCOSE 88 mg/dL (70-104); GOT 17 U/L (10-34); GPT 9 U/L (10-44); MAGNESIUM 1.7 mg/dL (1.5-2.7); PHOSPHORUS 3.1 mg/dL (2.7-4.5); SODIUM 138 mmol/L (136-145); TCO2 22 mmol/L (25-35); TOTAL PROTEIN 6.9 g/dL (6.3-8.3)
[2018-06-02] MEDS ORDERED: KLOR-CON PO ONE (07:19)
[2018-06-02] MEDS: HUMULIN R SUBQ SCH (08:02)
[2018-06-02] MEDS: TENORMIN PO SCH (08:17)
[2018-06-02] MEDS: ARIXTRA SUBQ SCH (08:18)
[2018-06-02] MEDS: FLONASE NAS SCH (08:18)
[2018-06-02] MEDS: FOLIC ACID PO SCH (08:18)
[2018-06-02] MEDS: SINGULAIR PO SCH (08:18)
[2018-06-02] MEDS: ICAR-C PO SCH (08:18)
[2018-06-02] MEDS: COZAAR PO SCH (08:18)
--- NOTE | 2018-06-02 13:44 | PROGRESS NOTE ---
DATE: 06/02/2018 SUBJECTIVE: The patient is sitting up in bed. He states that he feels good. He was able to tolerate his diet without any difficulty. He had 1 bowel movement. OBJECTIVE: Vital Signs: Temperature 98 degrees, blood pressure 120/64, heart rate 65, respirations 18, O2 saturation 99% on room air. General: This is a middle-aged male lying in bed in no acute distress. Heart: S1, S2 normal. Regular rate and rhythm. Lungs: Clear to auscultation bilaterally. Abdomen: Positive bowel sounds. Soft, nontender, nondistended. Extremities: No edema. No cyanosis. Neurologic: The patient is alert and oriented x3. LABS: Reviewed. ASSESSMENT AND PLAN: 1. Sigmoid diverticulitis with early abscess formation. The patient has tolerated his diet without any difficulty. He has also had a bowel movement. Continue with antibiotic therapy. Further recommendations to follow from the general surgeon. 2. Diabetes mellitus type 2. Stable. Continue with sliding scale insulin. 3. Folate deficiency. Continue on folic acid replacement. 4. Thrombocytopenia. Resolved. 5. Hypokalemia. Will replace the patient's potassium. 6. Disposition. Will plan to discharge the patient home once cleared by the general surgeon. cc: Olivia Perry MD
[2018-06-02 14:13] VITALS: BP 120/74
--- NOTE | 2018-06-02 17:40 | GENERAL SURGERY PROGRESS NOTE ---
DATE: 06/02/2018 It is 2:35 in the afternoon. Mr. Sanderson is doing well. He is eating food. His abdomen is less tender. His white count is normal. It is certainly okay with me that he be discharged. I would recommend he will go home on antibiotics by mouth. He can return to see Dr. Dewey in followup. cc: Michael Pritchett MD
== END 2018-06-02 16:20 | disposition home or self-care (01) | DRG 392 ==
LOC: SUPCPDRO → ED 08:18 → SUATTDRO 08:19 → 4N 08:19
PROVIDERS: ATTEND Internal Medicine
CPT/HCPCS: 74176; 76705; 80048; 80053; 80074; 80076; 80101; 80301; 80307; 80324; 80345; 80346; 80353; 80358; 80361; 80365; 81001; 82150; 82607; 82728; 82746; 82948; 83036; 83540; 83550; 83690; 83735; 83992; 84100; 85025; 85027; 85045; 86022; 96374; 96375; 99285; A9270; C9113; G0431; G0434; G0479; G0480; J1170; J1650; J1652; J1956; J2270; J2405; J3475; J7030; S0030; S0164; XXXXX

== ENCOUNTER 2018-08-10 06:58 | Inpatient (IN) ==
[2018-08-07 09:31] LABS: HEMATOCRIT 38.7 % (42.0-52.0); HEMOGLOBIN 13.2 g/dL (14.0-18.0); MCH 31.7 PG (27-31); MCHC 34.1 g/dL (33-37); MCV 92.8 FL (81-99); MPV 9.4 FL (7.4-10.4); RBC 4.17 XMIL (4.7-6.1); RDW 16.3 % (11.5-14.5); WBC 7.25 X1000 (4.8-10.8)
[2018-08-10] MEDS: DILAUDID ONE ×8 (02:46→15:47)
[2018-08-10] MEDS ORDERED: PEPCID ONE (07:22)
[2018-08-10] MEDS ORDERED: REGLAN ONE (07:22)
[2018-08-10] MEDS ORDERED: LR 1,000 ML ONE (07:22)
[2018-08-10] MEDS ORDERED: MEFOXIN 2 GM/NS 2 GM/50 ML IVPB ONE (07:23)
[2018-08-10] MEDS ORDERED: ENTEREG ONE (07:34)
[2018-08-10] MEDS ORDERED: XYLOCAINE-MPF 2% ONE (07:47)
[2018-08-10] MEDS ORDERED: QUELICIN (DOSE) ONE (07:47)
[2018-08-10] MEDS ORDERED: DIPRIVAN 1% ONE (07:48)
[2018-08-10] MEDS ORDERED: STERILE WATER INJ. ONE (07:49)
[2018-08-10] MEDS ORDERED: NORCURON ONE ×2 (07:49→11:04)
[2018-08-10] MEDS ORDERED: EXPAREL 1.3% ONE (08:05)
[2018-08-10] MEDS ORDERED: SODIUM CHLORIDE 0.9% 10 ML ONE (08:05)
[2018-08-10] MEDS ORDERED: MARCAINE 0.25% ONE (08:05)
[2018-08-10] MEDS ORDERED: MARCAINE 0.25% PF/EPI 1:200,000 ONE (09:05)
[2018-08-10] MEDS ORDERED: FENTANYL ONE ×2 (09:55→11:29)
[2018-08-10] MEDS ORDERED: ZOFRAN ONE (11:45)
[2018-08-10] MEDS ORDERED: DECADRON ONE (11:45)
[2018-08-10] MEDS ORDERED: NEOSTIGMINE ONE (11:55)
[2018-08-10 12:32] LABS: URINE SOURCE CATH
[2018-08-10] MEDS ORDERED: D5 1/2 NS + KCL 20 MEQ 1,000 ML ONE (12:40)
[2018-08-10] MEDS: OFIRMEV 1000 MG/ISOTONIC SOLN 1,000 MG/100 ML BOTTLE ONE ×2 (12:40→15:46)
[2018-08-10 12:48] LABS: BILIRUBIN URINE NEGATIVE (NEGATIVE); BLOOD URINE TRACE (NEGATIVE); COLOR YELLOW; GLUCOSE URINE NEGATIVE (NEGATIVE); KETONE URINE NEGATIVE (NEGATIVE); LEUKOCYTES URINE NEGATIVE (NEGATIVE); NITRITE URINE NEGATIVE (NEGATIVE); PROTEIN URINE 30 mg/dL (NEGATIVE); SP GRAVITY URINE 1.021; TURBIDITY URINE HAZY (CLEAR); UR EPITHELIAL CELLS <10 /HPF (<10); URINE BACTERIA NEGATIVE /HPF; URINE RBC <10 /HPF (<10); URINE WBC <10 /HPF (<10); UROBILINOGEN URINE NORMAL (NORMAL)
[2018-08-10] MEDS ORDERED: ZOFRAN IV PRN (14:39)
[2018-08-10] MEDS ORDERED: MEFOXIN 2 GM/NS 2 GM/50 ML IVPB IV SCH (15:00)
[2018-08-10] MEDS: MEFOXIN 2 GM in D5W 50 ML IV SCH ×2 (15:46→21:24)
[2018-08-10] MEDS: ULTRAM PO PRN ×2 (15:47→21:33)
[2018-08-10] MEDS: OFIRMEV 1000 MG/ISOTONIC SOLN 1,000 MG/100 ML BOTTLE IV SCH ×2 (17:47→19:17)
--- NOTE | 2018-08-10 18:02 | OPERATIVE NOTE ---
PROCEDURE DATE: 08/10/2018 PREOPERATIVE DIAGNOSIS: Recurrent diverticulitis. POSTOP DIAGNOSIS: Recurrent diverticulitis. PROCEDURE: Laparoscopic robot-assisted sigmoid resection. SURGEON: Chapincito Dewey MD. BALANCE WHEEL FACER: Dr. Cuevas. ANESTHESIA: General endotracheal. FINDINGS: Short segment of diverticulitis that was inflamed. COMPLICATIONS: None time this dictation. ESTIMATED BLOOD LOSS: 100 mL. SPECIMENS REMOVED: Sigmoid colon. BRIEF HISTORY: 53-year-old gentleman with recurrent perforated diverticulitis felt that he would benefit from resection. The risks, benefits, alternatives were discussed and documented chart. All questions answered. DESCRIPTION OF PROCEDURE: After informed consent was obtained patient brought to the operative theatre, transferred op table placed supine position. General endotracheal anesthesia was then performed without complication. Formal time-out was then performed confirming patient, date, procedure, all in agreement. At that point the patient repositioned in lithotomy. Anesthesia did a TAP block without complication. We then prepped and draped the abdomen in sterile fashion. After the formal time-out we turned our attention to the abdomen. We first started placing our trocars. We placed a trocar just off the midline on the right side above the umbilicus. Using Optiview technique 12 mm trocar we then placed a 12 mm trocar in the right lower quadrant, a 5 mm trochar the right upper quadrant, a 8 mm trocar in the midclavicular line on the left side and 1 superior to this. We then turned our attention to the robot docked the robot. We started by taking down adhesions from the sigmoid colon. There was an obvious area where it was inflamed. We did a medial to lateral approach dissecting out 1st the proximal edge where we want to resect and got around the colon there then dissected down and isolated the inferior mesenteric artery and ligated it. We also isolated the inferior mesenteric vein and ligated it, we continued down and found our distal point of the rectum where the teniae were starting to splay out where there is no disease and that area looked fine. We dissected the mesentery and got around it. We then used the firefly and saw that we had perfusion noted to where we wanted to staple. We brought a stapler in robotically, fired across the distal end. We then made an incision down the left lower quadrant through the fascia, extracted the colon, we transected it, placed an anvil and brought it back out onto the abdomen, we were able to robotically perform the end-to-end anastomosis with an EEA stapler with good results. It was watertight and airtight underwater. We irrigated out the abdomen copiously. It should be noted we did directly identify the ureter but we were close to the colon so we were away from the area. There was no blood in the urine. There was intact donuts on the EEA but they were thin but again it is airtight under water. We irrigated out the abdomen then closed the supraumbilical incision with 0 Vicryl on a Jose Luis Carlos device then closed the left lower quadrant incision with 2 layers. Patient tolerated procedure well. We closed all skin incisions with 4-0 Monocryl. It should be noted Dr. Cuevas was present for the entirety the case and his presence was crucial for the completion of the case. cc: Chapincito Dewey MD MTDD
[2018-08-10] MEDS: HEPARIN SUBQ SCH (21:24)
[2018-08-11] MEDS: OFIRMEV 1000 MG/ISOTONIC SOLN 1,000 MG/100 ML BOTTLE IV SCH ×5 (01:19→22:20)
[2018-08-11] MEDS: ULTRAM PO PRN ×6 (01:41→22:20)
[2018-08-11] MEDS: MEFOXIN 2 GM in D5W 50 ML IV SCH ×2 (03:17→10:10)
[2018-08-11 05:28] LABS: URINE SOURCE CATH
[2018-08-11 05:32] LABS: BILIRUBIN URINE NEGATIVE (NEGATIVE); BLOOD URINE MODERATE (NEGATIVE); COLOR YELLOW; GLUCOSE URINE NEGATIVE (NEGATIVE); KETONE URINE NEGATIVE (NEGATIVE); LEUKOCYTES URINE SMALL (NEGATIVE); NITRITE URINE NEGATIVE (NEGATIVE); PH URINE 6.5; PROTEIN URINE 30 mg/dL (NEGATIVE); SP GRAVITY URINE 1.028; TURBIDITY URINE CLEAR (CLEAR); UROBILINOGEN URINE NORMAL (NORMAL)
[2018-08-11 05:33] LABS: UR EPITHELIAL CELLS <10 /HPF (<10); URINE BACTERIA NEGATIVE /HPF; URINE RBC TNTC /HPF (<10); URINE WBC 20-40 /HPF (<10)
[2018-08-11] MEDS: HEPARIN SUBQ SCH ×3 (05:56→22:20)
[2018-08-11] MEDS: ENTEREG PO SCH ×2 (10:10→22:21)
[2018-08-11] MEDS ORDERED: TYLENOL PO PRN (14:40)
--- NOTE | 2018-08-11 22:24 | GENERAL SURGERY PROGRESS NOTE ---
DATE: 08/11/2018 Mr Sanderson is afebrile. Hemodynamics are good. Denies any nausea. He has had no flatus so far. He would like to have more than just Ultram for pain. We will give him some more IV Tylenol. cc: MD Chapincito Billy MD
[2018-08-12] MEDS: ULTRAM PO PRN ×5 (02:50→20:42)
[2018-08-12] MEDS: OFIRMEV 1000 MG/ISOTONIC SOLN 1,000 MG/100 ML BOTTLE IV SCH ×4 (06:02→20:41)
[2018-08-12] MEDS: D5 1/2 NS + KCL 20 MEQ 1,000 ML IV SCH (06:03)
[2018-08-12] MEDS: HEPARIN SUBQ SCH ×3 (06:11→20:41)
--- NOTE | 2018-08-12 09:31 | GENERAL SURGERY PROGRESS NOTE ---
DATE: 08/12/2018 Mr. Sanderson is doing generally well. He is afebrile. Hemodynamics are good. He has passed some flatus. He is not taking much by mouth, however. The plan will be to advance him to full liquids today. His Alexis comes out today. cc: MD Chapincito Billy MD
[2018-08-12] MEDS: VITAMIN B-12 PO SCH (09:35)
[2018-08-12] MEDS: COZAAR PO SCH (09:36)
[2018-08-12] MEDS: KLOR-CON PO SCH ×2 (09:37→20:41)
[2018-08-12] MEDS: PERIDEX MT SCH ×2 (09:37→20:41)
[2018-08-12] MEDS: FOLIC ACID PO SCH (09:37)
[2018-08-12] MEDS: ENTEREG PO SCH ×2 (09:37→20:41)
[2018-08-12] MEDS: TENORMIN PO SCH (09:37)
[2018-08-12] MEDS: GLUCOPHAGE PO SCH ×2 (09:37→16:27)
[2018-08-12] MEDS ORDERED: ZOCOR PO SCH (21:00)
[2018-08-13] MEDS: OFIRMEV 1000 MG/ISOTONIC SOLN 1,000 MG/100 ML BOTTLE IV SCH ×3 (00:39→10:14)
[2018-08-13] MEDS: ULTRAM PO PRN ×4 (01:59→15:17)
[2018-08-13] MEDS: D5 1/2 NS + KCL 20 MEQ 1,000 ML IV SCH (03:31)
[2018-08-13] MEDS: HEPARIN SUBQ SCH (06:43)
[2018-08-13 07:25] VITALS: BP 125/81
--- NOTE | 2018-08-13 07:39 | GENERAL SURGERY PROGRESS NOTE ---
DATE: 08/13/2018 SUBJECTIVE: Patient doing well. He is having bowel movements. He had ordered a full liquid diet but he essentially had a regular diet last night. He did have some diarrhea but he seems to be doing okay. OBJECTIVE: Vital Signs: The patient is currently afebrile. His vital signs are stable. General Examination: No acute distress. Cardiovascular: Regular rate and rhythm. Lungs: Grossly clear. Abdomen: Soft, appropriately tender. Bowel sounds auscultated. ASSESSMENT/PLAN: A 53-year-old gentleman, currently postoperative day #3 from laparoscopic robot- assisted colon resection. Postoperative state. At this time, the patient seems to be doing well. We will plan on discharge later today. cc: Chapincito Dewey MD
[2018-08-13] MEDS: COZAAR PO SCH (10:11)
[2018-08-13] MEDS: ENTEREG PO SCH (10:12)
[2018-08-13] MEDS: FOLIC ACID PO SCH (10:12)
[2018-08-13] MEDS: GLUCOPHAGE PO SCH (10:13)
[2018-08-13] MEDS: VITAMIN B-12 PO SCH (10:13)
[2018-08-13] MEDS: TENORMIN PO SCH (10:13)
[2018-08-13] MEDS: PERIDEX MT SCH (10:14)
[2018-08-13] MEDS: KLOR-CON PO SCH (10:14)
--- NOTE | 2018-08-15 05:41 | DISCHARGE SUMMARY ---
ADMISSION DATE: 08/10/2018 DISCHARGE DATE: 08/13/2018 ADMITTING DIAGNOSIS: History of diverticulitis. DISCHARGE DIAGNOSIS: Status post robotic assisted sigmoid resection. ADMITTING PHYSICIAN: Chapincito Dewey MD CONSULTATIONS: None. PROCEDURES: Laparoscopic robot assisted sigmoid resection. BRIEF HISTORY AND COURSE OF STAY: A 53-year-old gentleman who was admitted and underwent previously described procedure. He tolerated it well. His postoperative course was essentially uneventful. He was able to be progressed to a regular diet by postop day 3. He was up and ambulating. His Alexis catheter was removed. He was passing gas and having bowel movements. He seemed to be having his pain controlled. Therefore, it was felt that he would be safe to be discharged home. Arrangements were made. He was discharged. DISPOSITION: Home. DISCHARGE CONDITION: Stable. FOLLOWUP: Patient told to follow up with myself and his primary care physician. PRESCRIPTIONS: Patient was given prescription for Toradol. cc: Chapincito Dewey MD
== END 2018-08-13 16:15 | disposition home or self-care (01) | DRG 331 ==
LOC: SURHOLD 06:58 → 4N 13:46
PROVIDERS: ADMIT Surgery; ATTEND Surgery
CPT/HCPCS: 80048; 81001; 85027; 86850; 86900; 86901; 87088; 88307; 94760; 94761; 94799; A9270; C9290; J0131; J0330; J0694; J1100; J1170; J1644; J2405; J3010; J3480; J7060; J7120; S0020; S2900